=== PATIENT | male | born 1955 | race Caucasian/White ===

== ENCOUNTER 2021-12-07 14:35 | Observation (INO) | payer MEDICARE, OTHER ==
--- NOTE | 2021-12-07 14:50 | ERPHSYRPT ---
- History of Present Illness Time Seen by Provider: 12/07/21 14:49 Source: patient Exam Limitations: no limitations Physician History: The patient is a 66-year-old male who presents with a chief complaint of abdominal pain. Of note, the patient endorsed having right mid axillary pain started 1 to 2 days ago. He stated the pain became worse with trying to lie on his right side and is since migrated to his right lower quadrant lower quadrant and is completely resolved. Endorsed having some pain whenever he walks mainly in his groin but this is minimal. As long as he is lying still he is in no distress. He denies fever, chills, nausea, vomiting, diarrhea or constipation. He does not have a primary care provider that he follows with. He reportedly started taking some amoxicillin that he had purchased from [place] and shortly after taking the amoxicillin the pain reportedly resolved. He is currently pain-free at this time. Allergies/Adverse Reactions: No Known Drug Allergies Allergy (Unverified 12/07/21 14:43) Home Medications: No Reportable Medications [No Reported Medications] 12/07/21 [History] - Review of Systems Constitutional: No Symptoms Eyes: No Symptoms Ears, Nose, & Throat: No Symptoms Cardiac: Chest Pain Abdominal/Gastrointestinal: Abdominal Pain, No Nausea, No Vomiting Genitourinary Symptoms: No Dysuria, No Frequency, No Hematuria, No Flank Pain Musculoskeletal: No Back Pain, No Neck Pain, No Deformity Skin: No Symptoms Neurological: No Symptoms Psychological: No Symptoms Endocrine: No Symptoms Hematologic/Lymphatic: No Symptoms All Other Systems: Reviewed and Negative - Nursing Vital Signs Nursing Vital Signs: Initial Vital Signs Temperature 98.7 F 12/07/21 14:44 Pulse Rate 85 12/07/21 14:44 Respiratory Rate 18 12/07/21 14:44 Blood Pressure 178/99 12/07/21 14:44 O2 Sat by Pulse Oximetry 97 12/07/21 14:44 Pain Scale Pain Intensity 4 - Physical Exam General Appearance: no apparent distress, alert Eye Exam: PERRL/EOMI Ears, Nose, Throat Exam: moist mucous membranes Neck Exam: No JVD Respiratory Exam: normal breath sounds, lungs clear, airway intact, No chest tenderness, No respiratory distress Cardiovascular Exam: regular rate/rhythm, normal heart sounds, normal peripheral pulses, No murmur, No friction rub, No gallop, No capillary refill <2 sec Gastrointestinal/Abdomen Exam: soft, No tenderness, No distention, No mass, No guarding Male Genitalia Exam: normal genitalia Rectal Exam: deferred Back Exam: normal inspection Extremity Exam: normal inspection Neurologic Exam: alert, oriented x 3, cooperative Skin Exam: normal color, warm, dry, No rash, No petechiae, No jaundice SpO2 Interpretation: normal O2 Delivery: Room Air - Course Nursing assessment & vital signs reviewed: Yes EKG Interpreted by Me: RATE, Sinus Rhythm, Other (Sinus rhythm with a ventricular rate of 75 bpm, DE interval 152 ms, QRS duration 79 ms, QT/QTc 37 7/420 ms) - Radiology Exams Chest X-ray Interpretation: Reviewed by me, Teleradiologist Report (Mild left basilar platelike opacities likely discoid atelectasis although pneumonia is not excluded. Suggest follow-up imaging to document resolution. Blunting in the right posterior costophrenic angle likely placement of the known small right pl eural effusion.) - CT Exams Abdomen/Pelvis CT Interpretation: Tele-radiologist Report (Small right pleural effusion incompletely imaged. Mild basilar right lower lobe groundglass opacities likely atelectasis or possible pneumonia. Consider follow-up imaging to document resolution of clinically indicated.Hepatic steatosis.Diverticulosis.) Ordered Tests: Active Orders 24 hr Category Date Time Status Up With Assistance TOLERATED Activity 12/07/21 17:59 Active IV Insertion ROUTINE Care 12/07/21 17:58 Active IV Insertion STAT Care 12/07/21 14:[address] in Observation ROUTINE Care 12/07/21 17:58 Active ABDOMEN AND PELVIS W CONTRAST [CT] Stat Exams 12/07/21 15:20 Taken CHEST 2 VIEWS (PA AND LAT) Stat Exams 12/07/21 16:40 Taken CHEST WITH CONTRAST [CT] Routine Exams 12/08/21 09:00 Ordered ARTERIAL BLOOD GASES AM.LAB Lab 12/08/21 04:00 Ordered BLOOD CULTURE Stat Lab 12/07/21 Ordered BMP Stat Lab 12/07/21 15:00 Completed CBC W DIFF Stat Lab 12/07/21 15:00 Completed CMP AM.LAB Lab 12/08/21 04:00 Ordered D-DIMER QUANTITATIVE Stat Lab 12/07/21 16:43 Completed Lactic Acid Stat Lab 12/07/21 17:55 Ordered NT PRO BNP Stat Lab 12/07/21 17:21 Completed PROTIME WITH INR Stat Lab 12/07/21 17:55 Ordered PTT Stat Lab 12/07/21 17:55 Ordered TROPONIN Stat Lab 12/07/21 17:13 Completed UA W/RFX UR CULTURE Stat Lab 12/07/21 15:02 Completed EKG STAT RT 12/07/21 17:00 Active Pulse Oximetry ROUTINE RT 12/07/21 17:59 Active Medication Summary Generic Name Dose Route Start Last Admin Trade Name Freq PRN Reason Stop Dose Admin Acetaminophen 650 mg 12/07/21 17:58 Acetaminophen 650 Mg Supp.Rect DE 01/06/22 17:57 Q4H PRN PRN PAIN AND/OR FEVER Enoxaparin Sodium 94 mg 12/08/21 10:00 Enoxaparin Sodium 120 Mg/0.8 Ml Syringe SQ 01/07/22 09:59 DAILY [facility] Ceftriaxone Sodium/Dextrose 1 g in 50 mls @ 100 mls/hr 12/08/21 10:00 Rocephin 1 Gm-D5w 50 Ml Bag IV 12/11/21 09:59 Q24H10 [facility] Azithromycin 500 mg in 250 mls @ 250 mls/hr 12/08/21 10:00 Zithromax 500 Mg/ 250 Ml Nacl Premix IV 01/07/22 09:59 Q24H10 [facility] Lab/Rad Data: Laboratory Result Diagrams 12/07/21 15:00 12/07/21 15:00 Laboratory Results 12/07/21 12/07/21 12/07/21 Range/Units 17:21 17:13 16:43 WBC (4.0-10.5) K/mm3 RBC (4.1-5.6) M/mm3 Hgb (12.5-18.0) gm/dl Hct (42-50) % MCV (78-100) fl MCH (26-32) pg MCHC (32-36) g/dl RDW (11.5-14.0) % Plt Count (150-450) K/mm3 MPV (7.5-11.0) fl Gran % (36.0-66.0) % Eos # (Auto) (0-0.5) Absolute Lymphs (auto) (1.0-4.6) Absolute Monos (auto) (0.0-1.3) Lymphocytes % (24.0-44.0) % Monocytes % (0.0-12.0) % Eosinophils % (0.00-5.0) % Basophils % (0.0-0.4) % Absolute Granulocytes (1.4-6.9) Basophils # (0-0.4) D-Dimer 1818 H* (215-500) ng/mL Sodium (137-145) mmol/L Potassium (3.5-5.1) mmol/L Chloride (98-107) mmol/L Carbon Dioxide (22-30) mmol/L Anion Gap (5-15) MEQ/L BUN (9-20) mg/dL Creatinine (0.66-1.25) mg/dL Estimated GFR ML/MIN Glucose (74-106) mg/dL Calcium (8.4-10.2) mg/dL Troponin I < 0.012 (0.000-0.034) ng/mL NT-Pro-B Natriuret Pep 148 (0-900) pg/mL Urine Color (YELLOW) Urine Appearance (CLEAR) Urine pH (5-6) Ur Specific [place] (1.005-1.025) Urine Protein (Negative) Urine Ketones (NEGATIVE) Urine Blood (0-5) Gene/ul Urine Nitrite (NEGATIVE) Urine Bilirubin (NEGATIVE) Urine Urobilinogen (0-1) mg/dL Ur Leukocyte Esterase (NEGATIVE) Urine WBC (Auto) (0-5) /HPF Urine RBC (Auto) (0-2) /HPF U Epithel Cells (Auto) (FEW) /HPF Urine Bacteria (Auto) (NEGATIVE) /HPF Urine Mucus (Auto) (NEGATIVE) /HPF Urine Culture Reflexed (NO) Urine Glucose (NEGATIVE) mg/dL 12/07/21 12/07/21 12/07/21 Range/Units 15:02 15:00 15:00 WBC 11.1 H (4.0-10.5) K/mm3 RBC 4.81 (4.1-5.6) M/mm3 Hgb 15.1 (12.5-18.0) gm/dl Hct 44.8 (42-50) % MCV 93.1 (78-100) fl MCH 31.4 (26-32) pg MCHC 33.7 (32-36) g/dl RDW 13.5 (11.5-14.0) % Plt Count 373 (150-450) K/mm3 MPV 9.8 (7.5-11.0) fl Gran % 68.5 H (36.0-66.0) % Eos # (Auto) 0.17 (0-0.5) Absolute Lymphs (auto) 2.10 (1.0-4.6) Absolute Monos (auto) 1.15 (0.0-1.3) Lymphocytes % 19.0 L (24.0-44.0) % Monocytes % 10.4 (0.0-12.0) % Eosinophils % 1.5 (0.00-5.0) % Basophils % 0.6 (0.0-0.4) % Absolute Granulocytes 7.57 H (1.4-6.9) Basophils # 0.07 (0-0.4) D-Dimer (215-500) ng/mL Sodium 137 (137-145) mmol/L Potassium 4.7 (3.5-5.1) mmol/L Chloride 104 (98-107) mmol/L Carbon Dioxide 21 L (22-30) mmol/L Anion Gap 15.9 H (5-15) MEQ/L BUN 16 (9-20) mg/dL Creatinine 0.83 (0.66-1.25) mg/dL Estimated GFR > 60.0 ML/MIN Glucose 110 H (74-106) mg/dL Calcium 10.0 (8.4-10.2) mg/dL Troponin I (0.000-0.034) ng/mL NT-Pro-B Natriuret Pep (0-900) pg/mL Urine Color FABIANO (YELLOW) Urine Appearance SLIGHTLY CLOUDY (CLEAR) Urine pH 5.0 (5-6) Ur Specific [place] 1.025 (1.005-1.025) Urine Protein 30 (Negative) Urine Ketones TRACE (NEGATIVE) Urine Blood NEGATIVE (0-5) Gene/ul Urine Nitrite NEGATIVE (NEGATIVE) Urine Bilirubin NEGATIVE (NEGATIVE) Urine Urobilinogen 2 (0-1) mg/dL Ur Leukocyte Esterase NEGATIVE (NEGATIVE) Urine WBC (Auto) NONE (0-5) /HPF Urine RBC (Auto) 0-2 (0-2) /HPF U Epithel Cells (Auto) NONE (FEW) /HPF Urine Bacteria (Auto) NONE (NEGATIVE) /HPF Urine Mucus (Auto) SLIGHT (NEGATIVE) /HPF Urine Culture Reflexed NO (NO) Urine Glucose NEGATIVE (NEGATIVE) mg/dL - Progress Progress: unchanged Progress Note: 12/07/21 17:[address] scan of his abdomen pelvis shows evidence of a right pleural effusion and right atelectasis versus pneumonia. I do believe the patient's chest pain/abdominal pain is likely referred pain from this. He has no fever, chills he has a very mild leukocytosis and he has no cough or complaints of shortness of breath. I have a low suspicion for an infectious etiology at this time and PE is definitely on the differential given that his D-dimer is over 1800. His EKG showed no evidence of right heart strain and is not tachycardic or hypoxic. Unfortunately, he is already received a contrast load with his abdominal CT scan and in order for me to clinch the diagnosis he will need a CT scan with contrast. I do not think our radiology department will let me go forward with this and the patient will likely need to be admitted on empiric anticoagulation until his scan could be repeated tomorrow, specifically a CTA chest. 12/07/21 17:[address] Hanks and discussed the case with her. She agreed to admit for observation and the diagnosis at this time will be right pleural effusion with right lower lobe opacities and possible mild left basilar platelike opacities from unknown etiology. Etiology could be infectious such as community-acquired pneumonia and/or PE at this time. We decided to empirically cover him with ceftriaxone and azithromycin and will empirically cover him with Lovenox for anticoagulation until he can undergo CTA chest tomorrow. Discussed with : Dez Will see patient in: hospital (observation) Counseled pt/family regarding: lab results, diagnosis, rad results - Departure Departure Disposition: Observation Clinical Impression: Pleural effusion, right, Elevated d-dimer, Opacities of both lungs present on chest x-ray Condition: Good Critical Care Time: No Referrals: DOCTOR,NO FAMILY [Primary Care Provider] - Follow up/PCP as directed
[2021-12-07 15:05] LABS: Absolute Neutrophil Ct (ANC) 7.57 (1.4-6.9); Basophil (Absolute #) 0.07 (0-0.4); Eosinophil % 1.5 % (0.00-5.0); Eosinophil (Absolute #) 0.17 (0-0.5); Hematocrit 44.8 % (42-50); Hemoglobin 15.1 gm/dl (12.5-18.0); Mean Cell Volume 93.1 fl (78-100); Mean Corpuscular Hemoglobin 31.4 pg (26-32); Mean Corpuscular Hgb Concent. 33.7 g/dl (32-36); Mean Platelet Volume 9.8 fl (7.5-11.0); Monocyte (Absolute #) 1.15 (0.0-1.3); Monocytes % 10.4 % (0.0-12.0); Neutrophil % 68.5 % (36.0-66.0); Platelet Count 373 K/mm3 (150-450); Red Blood Count 4.81 M/mm3 (4.1-5.6); Red Cell Distribution Width 13.5 % (11.5-14.0); White Blood Count 11.1 K/mm3 (4.0-10.5)
[2021-12-07 15:11] LABS: Appearance SLIGHTLY CLOUDY (CLEAR); Bilirubin NEGATIVE (NEGATIVE); Blood NEGATIVE Ery/ul (0-5); Glucose NEGATIVE (NEGATIVE); Ketones TRACE (NEGATIVE); Leukocyte Esterase NEGATIVE (NEGATIVE); Mucus SLIGHT /HPF (NEGATIVE); Nitrite NEGATIVE (NEGATIVE); Protein,Urine Dip 30 (Negative); RBC 0-2 /HPF (0-2); Specific Gravity 1.025 (1.005-1.025); Urobilinogen 2 mg/dL (0-1)
[2021-12-07 15:17] LABS: ANION GAP 15.9 MEQ/L (5-15); BLOOD UREA NITROGEN 16 mg/dL (9-20); CHLORIDE 104 mmol/L (98-107); Carbon Dioxide 21 mmol/L (22-30); Creatinine 1 0.83 mg/dL (0.66-1.25); EST GLOMERULAR FILTRATION RATE > 60.0 ML/MIN; Glucose 110 mg/dL (74-106); Potassium 4.7 mmol/L (3.5-5.1); SODIUM 137 mmol/L (137-145)
[2021-12-07] MEDS ORDERED: FEVERALL 650 MG PR PRN (17:58)
[2021-12-07 18:27] LABS: PTT 32.8 SECONDS (25.1-36.5)
[2021-12-07 18:30] LABS: PROTIME 11.8 SECONDS (9.4-12.5)
[2021-12-07 18:53] LABS: INFLUENZA A NEGATIVE (NEGATIVE); INFLUENZA B NEGATIVE (NEGATIVE); RESPIRATORY SYNCTIAL VIRUS NEGATIVE (Negative); SARS-CoV-2 Xpert Express NEGATIVE (NEGATIVE)
--- NOTE | 2021-12-07 19:51 | XRAY ---
Indication: Right lower quadrant pain 4 days. Multiple contiguous axial images obtained through the abdomen and pelvis using 80 cc Isovue 370 contrast. Comparison: None Lung bases demonstrates bibasilar subsegmental atelectasis/scarring and tiny nonspecific right effusion. Heart not enlarged. Noncontrasted stomach and bowel loops appear nonobstructed. Normal appendix. Mild scattered descending and sigmoid diverticulosis without diverticulitis. No free fluid/air. Mild diffuse fatty liver. Remaining liver, gallbladder, pancreas, spleen, adrenal glands, kidneys, ureters, and bladder are unremarkable. Mild scattered aortoiliac calcifications. No AAA or pathologic retroperitoneal lymphadenopathy. Osseous structures intact with minimal degenerative changes throughout the thoracolumbar spine. Small fatty left inguinal hernia. Impression: 1. Tiny nonspecific right pleural effusion without cardiomegaly. 2. Colonic diverticulosis, fatty liver, minimal degenerative spondylosis, and small fatty left inguinal hernia. 3. Remaining CT abdomen/pelvis with contrast exam is negative. Comment: Preliminary interpretation made by [facility]. No critical discrepancy.
--- NOTE | 2021-12-07 19:53 | XRAY ---
Indication: Right lower quadrant pain 4 days. Comparison: None PA/lateral chest hyperinflated with mild left and minimal right base discoid atelectasis/scarring. Tiny CT proven right effusion. No focal infiltrate or consolidation. Heart and mediastinal structures within normal limits. Bony thorax intact. Impression: Bilateral discoid atelectasis/scarring and tiny nonspecific right effusion. Negative for acute pneumonic process or CHF. Comment: Preliminary interpretation made by [facility]. No critical discrepancy.
[2021-12-07] MEDS ORDERED: Zithromax 500 MG/ 250 ML NaCl Premix 500 MG/250 ML IVPB IV ONE (20:43)
[2021-12-07] MEDS ORDERED: ROCEPHIN 1 Gm-D5w 50 ml Bag** 1 G/50 ML IVPB IV ONE (20:43)
[2021-12-07] MEDS ORDERED: ENOXAPARIN SODIUM SQ ONE (20:44)
[2021-12-08 05:30] LABS: ALBUMIN 3.9 g/dL (3.5-5.0); ALKALINE PHOSPHATASE 75 U/L (38-126); ANION GAP 12.3 MEQ/L (5-15); BLOOD UREA NITROGEN 14 mg/dL (9-20); CHLORIDE 105 mmol/L (98-107); Calcium 8.7 mg/dL (8.4-10.2); Carbon Dioxide 21 mmol/L (22-30); Creatinine 1 0.81 mg/dL (0.66-1.25); EST GLOMERULAR FILTRATION RATE > 60.0 ML/MIN; Glucose 102 mg/dL (74-106); Potassium 3.7 mmol/L (3.5-5.1); SGOT/AST 38 U/L (17-59); SGPT/ALT 38 U/L (0-50); SODIUM 134 mmol/L (137-145); Total Protein 7.3 g/dL (6.3-8.2)
[2021-12-08 07:56] VITALS: PULSE 75
[2021-12-08] MEDS ORDERED: Zithromax 500 MG/ 250 ML NaCl Premix 500 MG/250 ML IVPB IV SCH ×2 (10:00→22:00)
[2021-12-08] MEDS ORDERED: ROCEPHIN 1 Gm-D5w 50 ml Bag** 1 G/50 ML IVPB IV SCH ×2 (10:00→22:00)
[2021-12-08] MEDS ORDERED: ENOXAPARIN SODIUM SQ SCH ×2 (10:00→22:00)
--- NOTE | 2021-12-08 10:30 | XRAY ---
Indication: Multiple contiguous axial images obtained through the chest using Isovue 370 contrast and PE protocol. Comparison: None There is adequate opacification of the pulmonary arteries to include the lobar and segmental branches. Tiny nonoccluding pulmonary emboli seen in the inferior segment branch of the lingula and anterior segment branch of the left lower lobe. Heart not enlarged. Aorta is mildly arteriosclerotic without aneurysm/dissection. No pathologic mediastinal/hilar lymphadenopathy. Small hiatal hernia. Lungs demonstrate diffuse scattered left lung and right mid to lower lung subsegmental atelectasis/scarring. Right posterior gutter demonstrates patchy ground glass air space disease with minimal compressive atelectasis and tiny effusion. Bony thorax intact. CT abdomen/pelvis reported separately. Impression: 1. Tiny nonoccluding pulmonary emboli segmental branch of the lingula and left lower lobe as detailed. 2. Right posterior gutter air space disease with tiny effusion. 3. Scattered bilateral subsegmental atelectasis/scarring and small hiatal hernia.
[2021-12-08 12:21] VITALS: BP 145/80; O2SAT 94
[2021-12-08] MEDS ORDERED: Tums EX 750 MG PO PRN (12:29)
[2021-12-08] MEDS ORDERED: PHARMACY DOSING REQUEST MC ONE (12:30)
[2021-12-08] MEDS ORDERED: THERAGRAN MULTIVITAMIN PO SCH (13:00)
[2021-12-08] MEDS ORDERED: ECOTRIN 81 MG PO SCH (13:00)
[2021-12-08] MEDS ORDERED: XARELTO 10 MG TABLET PO ONE (13:05)
--- NOTE | 2021-12-08 13:30 | PCM.SSS ---
History of Present Illness - Chief Complaint Chief Complaint: abdominal pain for 1-2 days History of Present Illness: is a 66 year old male.who presents with a chief complaint of abdo osvaldo pain. Of note, the patient endorsed having right mid axillary pain started 1 to 2 days ago. He stated the pain became worse with trying to lie on his right side and is since migrated to his right lower quadrant lower quadrant and is completely resolved. Endorsed having some pain whenever he walks mainly in his groin but this is minimal. As long as he is lying still he is in no distress. He denies fever, chills, nausea, vomiting, diarrhea or constipation. He does not have a primary care provider that he follows with. He reportedly started taking some amoxicillin that he had purchased from [place] and shortly after taking the amoxicillin the pain reportedly resolved. He is currently pain-free at this time. - Review of Systems Constitutional: No Fever, No Chills Eyes: No Symptoms Ears, Nose, & Throat: No Symptoms Respiratory: No Cough, No Short Of Breath, No Wheezing Cardiac: Chest Pain, No Edema, No Syncope Abdominal/Gastrointestinal: Abdominal Pain, No Nausea, No Vomiting, No Diarrhea Genitourinary Symptoms: No Dysuria Musculoskeletal: No Back Pain, No Neck Pain Skin: No Rash Neurological: No Dizziness, No Focal Weakness, No Sensory Changes Psychological: No Symptoms Endocrine: No Symptoms Hematologic/Lymphatic: No Symptoms Immunological/Allergic: No Symptoms Medications & Allergies Home Medications: Home Medication List Aspirin [Lo-Dose Aspirin EC] 81 mg PO DAILY 12/08/21 [History Confirmed 12/08/21] C/Sourcherry/Celery/Grape Seed [Tart [place] Capsule] 1 cap PO DAILY 12/08/21 [History Confirmed 12/08/21] Calcium Carbonate [Tums] 1 tab PO TID PRN PRN 12/08/21 [History Confirmed 12/08/21] Multivit-Minerals/FA/Lycopene [One Daily Men's Health Tablet] 1 tab PO DAILY 12/08/21 [History Confirmed 12/08/21] Beacon-3/Dha/Epa/Fish Oil [Megared Adv 6X Abs 800 mg Sfgl] 1 cap PO DAILY 12/08/21 [History Confirmed 12/08/21] Rivaroxaban [Xarelto] 15 mg PO BID 21 Days #42 tablet 12/08/21 [Rx] Allergies/Adverse Reactions: Allergies Allergy/AdvReac Type Severity Reaction Status Date / Time No Known Drug Allergies Allergy Unverified 12/07/21 14:43 - Past Medical History Past Medical History: No Neurological History: No Pertinent History ENT History: No Pertinent History Cardiac History: No Pertinent History Respiratory History: No Pertinent History Endocrine Medical History: No Pertinent History Musculoskelatal History: No Pertinent History GI Medical History: No Pertinent History History: No Pertinent History Pyscho-Social History: No Pertinent History Male Reproductive Disorders: No Pertinent History - Past Surgical History Past Surgical History: No Neuro Surgical History: No Pertinent History Cardiac History: No Pertinent History Respiratory Surgery: No Pertinent History GI Surgical History: No Pertinent History Genitourinary Surgical Hx: No Pertinent History Musculskeletal Surgical Hx: No Pertinent History Male Surgical History: No Pertinent History - Social History Smoking Status: Former smoker Exposure to second hand smoke: Yes Alcohol: Occasionally Drug Use: none - Physical Exam Vital Signs: Vital Signs - 24 hr Temp Pulse Resp BP Pulse Ox 12/08/21 12:00 98.7 F 75 21 145/80 94 L 12/08/21 07:55 97.7 F 75 19 142/83 93 L 12/08/21 04:30 99.4 F 76 18 139/68 92 L 12/07/21 23:33 99.1 F 78 20 157/74 95 12/07/21 20:17 98.3 F 78 16 158/98 96 12/07/21 19:09 75 17 136/101 94 L 12/07/21 18:05 80 193/89 95 12/07/21 17:28 81 156/98 95 12/07/21 16:17 76 146/79 96 12/07/21 15:51 131/89 12/07/21 14:44 98.7 F 85 18 178/99 97 General Appearance: no apparent distress, alert Neurologic Exam: alert, oriented x 3, cooperative, normal mood/affect, nml cerebellar function, nml station & gait, sensation nml, No motor deficits Eye Exam: PERRL/EOMI, eyes nml inspection Ears, Nose, Throat Exam: normal ENT inspection, TMs normal, pharynx normal, moist mucous membranes Neck Exam: normal inspection, non-tender, supple, full range of motion Respiratory Exam: diminished breath sounds, No respiratory distress Cardiovascular Exam: regular rate/rhythm, normal heart sounds, normal peripheral pulses Gastrointestinal/Abdomen Exam: soft, normal bowel sounds, No tenderness, No mass Back Exam: normal inspection, normal range of motion, No CVA tenderness, No vertebral tenderness Extremity Exam: normal inspection, normal range of motion, pelvis stable Skin Exam: normal color, warm, dry, No rash Lymphatic Exam: No adenopathy Results - Labs Lab/Micro Results: Lab Results-Last 24 Hours 12/07/21 12/07/21 12/07/21 Range/Units 15:00 15:00 15:02 WBC 11.1 H (4.0-10.5) K/mm3 RBC 4.81 (4.1-5.6) M/mm3 Hgb 15.1 (12.5-18.0) gm/dl Hct 44.8 (42-50) % MCV 93.1 (78-100) fl MCH 31.4 (26-32) pg MCHC 33.7 (32-36) g/dl RDW 13.5 (11.5-14.0) % Plt Count 373 (150-450) K/mm3 MPV 9.8 (7.5-11.0) fl Gran % 68.5 H (36.0-66.0) % Eos # (Auto) 0.17 (0-0.5) Absolute Lymphs (auto) 2.10 (1.0-4.6) Absolute Monos (auto) 1.15 (0.0-1.3) Lymphocytes % 19.0 L (24.0-44.0) % Monocytes % 10.4 (0.0-12.0) % Eosinophils % 1.5 (0.00-5.0) % Basophils % 0.6 (0.0-0.4) % Absolute Granulocytes 7.57 H (1.4-6.9) Basophils # 0.07 (0-0.4) PT (9.4-12.5) SECONDS INR (0.8-3.0) APTT (25.1-36.5) SECONDS D-Dimer (215-500) ng/mL Sodium 137 (137-145) mmol/L Potassium 4.7 (3.5-5.1) mmol/L Chloride 104 (98-107) mmol/L Carbon Dioxide 21 L (22-30) mmol/L Anion Gap 15.9 H (5-15) MEQ/L BUN 16 (9-20) mg/dL Creatinine 0.83 (0.66-1.25) mg/dL Estimated GFR > 60.0 ML/MIN Glucose 110 H (74-106) mg/dL Lactic Acid (0.4-2.0) Calcium 10.0 (8.4-10.2) mg/dL Total Bilirubin (0.2-1.3) mg/dL AST (17-59) U/L ALT (0-50) U/L Alkaline Phosphatase (38-126) U/L Troponin I (0.000-0.034) ng/mL NT-Pro-B Natriuret Pep (0-900) pg/mL Serum Total Protein (6.3-8.2) g/dL Albumin (3.5-5.0) g/dL Urine Color FABIANO (YELLOW) Urine Appearance SLIGHTLY CLOUDY (CLEAR) Urine pH 5.0 (5-6) Ur Specific [place] 1.025 (1.005-1.025) Urine Protein 30 (Negative) Urine Ketones TRACE (NEGATIVE) Urine Blood NEGATIVE (0-5) Gene/ul Urine Nitrite NEGATIVE (NEGATIVE) Urine Bilirubin NEGATIVE (NEGATIVE) Urine Urobilinogen 2 (0-1) mg/dL Ur Leukocyte Esterase NEGATIVE (NEGATIVE) Urine WBC (Auto) NONE (0-5) /HPF Urine RBC (Auto) 0-2 (0-2) /HPF U Epithel Cells (Auto) NONE (FEW) /HPF Urine Bacteria (Auto) NONE (NEGATIVE) /HPF Urine Mucus (Auto) SLIGHT (NEGATIVE) /HPF Urine Culture Reflexed NO (NO) Urine Glucose NEGATIVE (NEGATIVE) mg/dL Influenza Type A Ag (NEGATIVE) Influenza Type B Ag (NEGATIVE) RSV (PCR) (Negative) SARS-CoV-2 (PCR) (NEGATIVE) 12/07/21 12/07/21 12/07/21 Range/Units 16:43 17:13 17:21 WBC (4.0-10.5) K/mm3 RBC (4.1-5.6) M/mm3 Hgb (12.5-18.0) gm/dl Hct (42-50) % MCV (78-100) fl MCH (26-32) pg MCHC (32-36) g/dl RDW (11.5-14.0) % Plt Count (150-450) K/mm3 MPV (7.5-11.0) fl Gran % (36.0-66.0) % Eos # (Auto) (0-0.5) Absolute Lymphs (auto) (1.0-4.6) Absolute Monos (auto) (0.0-1.3) Lymphocytes % (24.0-44.0) % Monocytes % (0.0-12.0) % Eosinophils % (0.00-5.0) % Basophils % (0.0-0.4) % Absolute Granulocytes (1.4-6.9) Basophils # (0-0.4) PT (9.4-12.5) SECONDS INR (0.8-3.0) APTT (25.1-36.5) SECONDS D-Dimer 1818 H* (215-500) ng/mL Sodium (137-145) mmol/L Potassium (3.5-5.1) mmol/L Chloride (98-107) mmol/L Carbon Dioxide (22-30) mmol/L Anion Gap (5-15) MEQ/L BUN (9-20) mg/dL Creatinine (0.66-1.25) mg/dL Estimated GFR ML/MIN Glucose (74-106) mg/dL Lactic Acid (0.4-2.0) Calcium (8.4-10.2) mg/dL Total Bilirubin (0.2-1.3) mg/dL AST (17-59) U/L ALT (0-50) U/L Alkaline Phosphatase (38-126) U/L Troponin I < 0.012 (0.000-0.034) ng/mL NT-Pro-B Natriuret Pep 148 (0-900) pg/mL Serum Total Protein (6.3-8.2) g/dL Albumin (3.5-5.0) g/dL Urine Color (YELLOW) Urine Appearance (CLEAR) Urine pH (5-6) Ur Specific [place] (1.005-1.025) Urine Protein (Negative) Urine Ketones (NEGATIVE) Urine Blood (0-5) Gene/ul Urine Nitrite (NEGATIVE) Urine Bilirubin (NEGATIVE) Urine Urobilinogen (0-1) mg/dL Ur Leukocyte Esterase (NEGATIVE) Urine WBC (Auto) (0-5) /HPF Urine RBC (Auto) (0-2) /HPF U Epithel Cells (Auto) (FEW) /HPF Urine Bacteria (Auto) (NEGATIVE) /HPF Urine Mucus (Auto) (NEGATIVE) /HPF Urine Culture Reflexed (NO) Urine Glucose (NEGATIVE) mg/dL Influenza Type A Ag (NEGATIVE) Influenza Type B Ag (NEGATIVE) RSV (PCR) (Negative) SARS-CoV-2 (PCR) (NEGATIVE) 12/07/21 12/07/21 12/07/21 Range/Units 17:30 18:10 18:55 WBC (4.0-10.5) K/mm3 RBC (4.1-5.6) M/mm3 Hgb (12.5-18.0) gm/dl Hct (42-50) % MCV (78-100) fl MCH (26-32) pg MCHC (32-36) g/dl RDW (11.5-14.0) % Plt Count (150-450) K/mm3 MPV (7.5-11.0) fl Gran % (36.0-66.0) % Eos # (Auto) (0-0.5) Absolute Lymphs (auto) (1.0-4.6) Absolute Monos (auto) (0.0-1.3) Lymphocytes % (24.0-44.0) % Monocytes % (0.0-12.0) % Eosinophils % (0.00-5.0) % Basophils % (0.0-0.4) % Absolute Granulocytes (1.4-6.9) Basophils # (0-0.4) PT 11.8 (9.4-12.5) SECONDS INR 1.00 (0.8-3.0) APTT 32.8 (25.1-36.5) SECONDS D-Dimer (215-500) ng/mL Sodium (137-145) mmol/L Potassium (3.5-5.1) mmol/L Chloride (98-107) mmol/L Carbon Dioxide (22-30) mmol/L Anion Gap (5-15) MEQ/L BUN (9-20) mg/dL Creatinine (0.66-1.25) mg/dL Estimated GFR ML/MIN Glucose (74-106) mg/dL Lactic Acid 0.9 (0.4-2.0) Calcium (8.4-10.2) mg/dL Total Bilirubin (0.2-1.3) mg/dL AST (17-59) U/L ALT (0-50) U/L Alkaline Phosphatase (38-126) U/L Troponin I (0.000-0.034) ng/mL NT-Pro-B Natriuret Pep (0-900) pg/mL Serum Total Protein (6.3-8.2) g/dL Albumin (3.5-5.0) g/dL Urine Color (YELLOW) Urine Appearance (CLEAR) Urine pH (5-6) Ur Specific [place] (1.005-1.025) Urine Protein (Negative) Urine Ketones (NEGATIVE) Urine Blood (0-5) Gene/ul Urine Nitrite (NEGATIVE) Urine Bilirubin (NEGATIVE) Urine Urobilinogen (0-1) mg/dL Ur Leukocyte Esterase (NEGATIVE) Urine WBC (Auto) (0-5) /HPF Urine RBC (Auto) (0-2) /HPF U Epithel Cells (Auto) (FEW) /HPF Urine Bacteria (Auto) (NEGATIVE) /HPF Urine Mucus (Auto) (NEGATIVE) /HPF Urine Culture Reflexed (NO) Urine Glucose (NEGATIVE) mg/dL Influenza Type A Ag NEGATIVE (NEGATIVE) Influenza Type B Ag NEGATIVE (NEGATIVE) RSV (PCR) NEGATIVE (Negative) SARS-CoV-2 (PCR) NEGATIVE (NEGATIVE) 12/08/21 Range/Units 05:04 WBC (4.0-10.5) K/mm3 RBC (4.1-5.6) M/mm3 Hgb (12.5-18.0) gm/dl Hct (42-50) % MCV (78-100) fl MCH (26-32) pg MCHC (32-36) g/dl RDW (11.5-14.0) % Plt Count (150-450) K/mm3 MPV (7.5-11.0) fl Gran % (36.0-66.0) % Eos # (Auto) (0-0.5) Absolute Lymphs (auto) (1.0-4.6) Absolute Monos (auto) (0.0-1.3) Lymphocytes % (24.0-44.0) % Monocytes % (0.0-12.0) % Eosinophils % (0.00-5.0) % Basophils % (0.0-0.4) % Absolute Granulocytes (1.4-6.9) Basophils # (0-0.4) PT (9.4-12.5) SECONDS INR (0.8-3.0) APTT (25.1-36.5) SECONDS D-Dimer (215-500) ng/mL Sodium 134 L (137-145) mmol/L Potassium 3.7 D (3.5-5.1) mmol/L Chloride 105 (98-107) mmol/L Carbon Dioxide 21 L (22-30) mmol/L Anion Gap 12.3 (5-15) MEQ/L BUN 14 (9-20) mg/dL Creatinine 0.81 (0.66-1.25) mg/dL Estimated GFR > 60.0 ML/MIN Glucose 102 (74-106) mg/dL Lactic Acid (0.4-2.0) Calcium 8.7 (8.4-10.2) mg/dL Total Bilirubin 0.60 (0.2-1.3) mg/dL AST 38 (17-59) U/L ALT 38 (0-50) U/L Alkaline Phosphatase 75 (38-126) U/L Troponin I (0.000-0.034) ng/mL NT-Pro-B Natriuret Pep (0-900) pg/mL Serum Total Protein 7.3 (6.3-8.2) g/dL Albumin 3.9 (3.5-5.0) g/dL Urine Color (YELLOW) Urine Appearance (CLEAR) Urine pH (5-6) Ur Specific [place] (1.005-1.025) Urine Protein (Negative) Urine Ketones (NEGATIVE) Urine Blood (0-5) Gene/ul Urine Nitrite (NEGATIVE) Urine Bilirubin (NEGATIVE) Urine Urobilinogen (0-1) mg/dL Ur Leukocyte Esterase (NEGATIVE) Urine WBC (Auto) (0-5) /HPF Urine RBC (Auto) (0-2) /HPF U Epithel Cells (Auto) (FEW) /HPF Urine Bacteria (Auto) (NEGATIVE) /HPF Urine Mucus (Auto) (NEGATIVE) /HPF Urine Culture Reflexed (NO) Urine Glucose (NEGATIVE) mg/dL Influenza Type A Ag (NEGATIVE) Influenza Type B Ag (NEGATIVE) RSV (PCR) (Negative) SARS-CoV-2 (PCR) (NEGATIVE) - Radiology Impressions Radiology Exams & Impressions: Radiology Procedures Category Date Time Status ABDOMEN AND PELVIS W CONTRAST [CT] Stat Exams 12/07/21 15:20 Completed CHEST 2 VIEWS (PA AND LAT) Stat Exams 12/07/21 16:40 Completed CHEST WITH CONTRAST [CT] Routine Exams 12/08/21 09:[address]/CHEST WITH CONTRAST Indication: Multiple contiguous axial images obtained through the chest using Isovue 370 contrast and PE protocol. Comparison: None There is adequate opacification of the pulmonary arteries to include the lobar and segmental branches. Tiny nonoccluding pulmonary emboli seen in the inferior segment branch of the lingula and anterior segment branch of the left lower lobe. Heart not enlarged. Aorta is mildly arteriosclerotic without aneurysm/dissection. No pathologic mediastinal/hilar lymphadenopathy. Small hiatal hernia. Lungs demonstrate diffuse scattered left lung and right mid to lower lung subsegmental atelectasis/scarring. Right posterior gutter demonstrates patchy ground glass air space disease with minimal compressive atelectasis and tiny effusion. Bony thorax intact. CT abdomen/pelvis reported separately. Impression: 1. Tiny nonoccluding pulmonary emboli segmental branch of the lingula and left lower lobe as detailed. 2. Right posterior gutter air space disease with tiny effusion. 3. Scattered bilateral subsegmental atelectasis/scarring and small hiatal hernia. CT/ABDOMEN AND PELVIS W CONTRAST Indication: Right lower quadrant pain 4 days. Multiple contiguous axial images obtained through the abdomen and pelvis using 80 cc Isovue 370 contrast. Comparison: None Lung bases demonstrates bibasilar subsegmental atelectasis/scarring and tiny nonspecific right effusion. Heart not enlarged. Noncontrasted stomach and bowel loops appear nonobstructed. Normal appendix. Mild scattered descending and sigmoid diverticulosis without diverticulitis. No free fluid/air. Mild diffuse fatty liver. Remaining liver, gallbladder, pancreas, spleen, adrenal glands, kidneys, ureters, and bladder are unremarkable. Mild scattered aortoiliac calcifications. No AAA or pathologic retroperitoneal lymphadenopathy. Osseous structures intact with minimal degenerative changes throughout the thoracolumbar spine. Small fatty left inguinal hernia. Impression: 1. Tiny nonspecific right pleural effusion without cardiomegaly. 2. Colonic diverticulosis, fatty liver, minimal degenerative spondylosis, and small fatty left inguinal hernia. 3. Remaining CT abdomen/pelvis with contrast exam is negative. - Other Procedures and Tests Respiratory Therapy 12/07/21 17:00 EKG STAT Assessment/Plan (1) Pulmonary embolism Current Visit: Yes Status: Acute Qualifiers: Pulmonary embolism type: single subsegmental (without acute cor pulmonale) Qualified Code(s): I26.93 - Single subsegmental pulmonary embolism without acute cor pulmonale Assessment & Plan: Chief Complaint Diagnosis Right pleural effusion Allergies Allergy/AdvReac Type Severity Reaction Status Date / Time No Known Drug Allergies Allergy Unverified 12/07/21 14:43 Vital Signs (Last 24 hours) Temp Pulse Resp BP Pulse Ox 12/08/21 12:00 98.7 F 75 21 145/80 94 L 12/08/21 07:55 97.7 F 75 19 142/83 93 L 12/08/21 04:30 99.4 F 76 18 139/68 92 L 12/07/21 23:33 99.1 F 78 20 157/74 95 12/07/21 20:17 98.3 F 78 16 158/98 96 12/07/21 19:09 75 17 136/101 94 L 12/07/21 18:05 80 193/89 95 12/07/21 17:28 81 156/98 95 12/07/21 16:17 76 146/79 96 12/07/21 15:51 131/89 12/07/21 14:44 98.7 F 85 18 178/99 97 Home Medications Medication Instructions Recorded Confirmed Last Taken Type Aspirin [Lo-Dose Aspirin EC] 81 mg PO DAILY 12/08/21 12/08/21 12/07/21 History C/Sourcherry/Celery/Grape Seed 1 cap PO DAILY 12/08/21 12/08/21 12/07/21 History [Tart [place] Capsule] Calcium Carbonate [Tums] 1 tab PO TID PRN PRN 12/08/21 12/08/21 Unknown History Multivit-Minerals/FA/Lycopene [One 1 tab PO DAILY 12/08/21 12/08/21 12/07/21 History Daily Men's Health Tablet] Beacon-3/Dha/Epa/Fish Oil [Megared 1 cap PO DAILY 12/08/21 12/08/21 12/07/21 History Adv 6X Abs 800 mg Sfgl] Current Medications Generic Name Dose Route Start Last Admin Trade Name Umair PRN Reason Stop Dose Admin Acetaminophen 650 mg 12/07/21 17:58 Acetaminophen 650 Mg Supp.Rect AR 01/06/22 17:57 Q4H PRN PRN PAIN AND/OR FEVER Aspirin 81 mg 12/08/21 13:00 Aspirin 81 Mg Tablet.Ec PO 01/07/22 12:59 DAILY PRIYANKA Calcium Carbonate/Glycine 750 mg 12/08/21 12:29 Calcium Carbonate 750 Mg 750 Mg Tab.Chew PO 01/07/22 12:28 TID PRN PRN GAS Enoxaparin Sodium 100 mg 12/08/21 22:00 Enoxaparin Sodium 100 Mg/Ml Syringe SQ 01/07/22 21:59 Q24H22 PRIYANKA Ceftriaxone Sodium/Dextrose 1 g in 50 mls @ 100 mls/hr 12/08/21 22:00 Rocephin 1 Gm-D5w 50 Ml Bag IV 12/11/21 21:59 Q24H22 PRIYANKA Azithromycin 500 mg in 250 mls @ 250 mls/hr 12/08/21 22:00 Zithromax 500 Mg/ 250 Ml Nacl Premix IV 01/07/22 21:59 Q24H22 PRIYANKA Multivitamins Therapeutic 1 tab 12/08/21 13:00 Multivitamins,Therapeutic 1 Tab Tab PO 01/07/22 12:59 DAILY PRIYANKA Discontinued Medications Generic Name Dose Route Start Last Admin Trade Name Umair PRN Reason Stop Dose Admin Enoxaparin Sodium 94 mg 12/08/21 10:00 12/07/21 20:59 Enoxaparin Sodium 120 Mg/0.8 Ml Syringe SQ 01/07/22 09:59 94 mg DAILY PRIYANKA Administration Enoxaparin Sodium Confirm 12/07/21 20:44 Enoxaparin Sodium 120 Mg/0.8 Ml Syringe Administered 12/07/21 20:45 Dose 120 mg SQ .STK-MED ONE Ceftriaxone Sodium/Dextrose 1 g in 50 mls @ 100 mls/hr 12/08/21 10:00 12/07/21 20:58 Rocephin 1 Gm-D5w 50 Ml Bag IV 12/11/21 09:59 100 mls/hr Q24H10 PRIYANKA Administration Azithromycin 500 mg in 250 mls @ 250 mls/hr 12/08/21 10:00 12/07/21 21:32 Zithromax 500 Mg/ 250 Ml Nacl Premix IV 01/07/22 09:59 250 mls/hr Q24H10 PRIYANKA Administration Azithromycin Confirm 12/07/21 20:43 Zithromax 500 Mg/ 250 Ml Nacl Premix Administered 12/07/21 20:44 Dose 500 mg in 250 mls @ ud IV .STK-MED ONE Ceftriaxone Sodium/Dextrose Confirm 12/07/21 20:43 Rocephin 1 Gm-D5w 50 Ml Bag Administered 12/07/21 20:44 Dose 1 g in 50 mls @ ud IV .STK-MED ONE Non-Formulary Medication 1 each 12/08/21 12:30 Pharmacy Dosing Request 12/08/21 12:31 STAT ONE Rivaroxaban 15 mg 12/08/21 13:05 12/08/21 13:18 Rivaroxaban 10 Mg Tablet PO 12/08/21 13:06 15 mg STAT ONE Administration Intake & Output (Last 24 hours) 12/06/21 12/07/21 12/08/21 12/09/21 10:59 11:59 11:59 11:59 Intake Total 1320 Balance 1320 Weight 94.1 kg Microbiology Results (Last 24 hours) 12/07/21 18:50 Blood Blood Culture Gram Stain - Pending 12/07/21 18:50 Blood Blood Culture - Pending 12/07/21 17:30 Blood Blood Culture Gram Stain - Pending 12/07/21 17:30 Blood Blood Culture - Pending Laboratory Results (Last 24 hours) 12/08/21 12/07/21 12/07/21 05:04 18:55 18:10 WBC RBC Hgb Hct MCV MCH MCHC RDW Plt Count MPV Gran % Eos # (Auto) Absolute Lymphs (auto) Absolute Monos (auto) Lymphocytes % Monocytes % Eosinophils % Basophils % Absolute Granulocytes Basophils # PT INR APTT D-Dimer Sodium 134 L Potassium 3.7 D Chloride 105 Carbon Dioxide 21 L Anion Gap 12.3 BUN 14 Creatinine 0.81 Estimated GFR > 60.0 Glucose 102 Lactic Acid 0.9 Calcium 8.7 Total Bilirubin 0.60 AST 38 ALT 38 Alkaline Phosphatase 75 Troponin I NT-Pro-B Natriuret Pep Serum Total Protein 7.3 Albumin 3.9 Urine Color Urine Appearance Urine pH Ur Specific [place] Urine Protein Urine Ketones Urine Blood Urine Nitrite Urine Bilirubin Urine Urobilinogen Ur Leukocyte Esterase Urine WBC (Auto) Urine RBC (Auto) U Epithel Cells (Auto) Urine Bacteria (Auto) Urine Mucus (Auto) Urine Culture Reflexed Urine Glucose Influenza Type A Ag NEGATIVE Influenza Type B Ag NEGATIVE RSV (PCR) NEGATIVE SARS-CoV-2 (PCR) NEGATIVE 12/07/21 12/07/21 12/07/21 17:30 17:21 17:13 WBC RBC Hgb Hct MCV MCH MCHC RDW Plt Count MPV Gran % Eos # (Auto) Absolute Lymphs (auto) Absolute Monos (auto) Lymphocytes % Monocytes % Eosinophils % Basophils % Absolute Granulocytes Basophils # PT 11.8 INR 1.00 APTT 32.8 D-Dimer Sodium Potassium Chloride Carbon Dioxide Anion Gap BUN Creatinine Estimated GFR Glucose Lactic Acid Calcium Total Bilirubin AST ALT Alkaline Phosphatase Troponin I < 0.012 NT-Pro-B Natriuret Pep 148 Serum Total Protein Albumin Urine Color Urine Appearance Urine pH Ur Specific [place] Urine Protein Urine Ketones Urine Blood Urine Nitrite Urine Bilirubin Urine Urobilinogen Ur Leukocyte Esterase Urine WBC (Auto) Urine RBC (Auto) U Epithel Cells (Auto) Urine Bacteria (Auto) Urine Mucus (Auto) Urine Culture Reflexed Urine Glucose Influenza Type A Ag Influenza Type B Ag RSV (PCR) SARS-CoV-2 (PCR) 12/07/21 12/07/21 12/07/21 16:43 15:02 15:00 WBC RBC Hgb Hct MCV MCH MCHC RDW Plt Count MPV Gran % Eos # (Auto) Absolute Lymphs (auto) Absolute Monos (auto) Lymphocytes % Monocytes % Eosinophils % Basophils % Absolute Granulocytes Basophils # PT INR APTT D-Dimer 1818 H* Sodium 137 Potassium 4.7 Chloride 104 Carbon Dioxide 21 L Anion Gap 15.9 H BUN 16 Creatinine 0.83 Estimated GFR > 60.0 Glucose 110 H Lactic Acid Calcium 10.0 Total Bilirubin AST ALT Alkaline Phosphatase Troponin I NT-Pro-B Natriuret Pep Serum Total Protein Albumin Urine Color FABIANO Urine Appearance SLIGHTLY CLOUDY Urine pH 5.0 Ur Specific [place] 1.025 Urine Protein 30 Urine Ketones TRACE Urine Blood NEGATIVE Urine Nitrite NEGATIVE Urine Bilirubin NEGATIVE Urine Urobilinogen 2 Ur Leukocyte Esterase NEGATIVE Urine WBC (Auto) NONE Urine RBC (Auto) 0-2 U Epithel Cells (Auto) NONE Urine Bacteria (Auto) NONE Urine Mucus (Auto) SLIGHT Urine Culture Reflexed NO Urine Glucose NEGATIVE Influenza Type A Ag Influenza Type B Ag RSV (PCR) SARS-CoV-2 (PCR) 12/07/21 15:00 WBC 11.1 H RBC 4.81 Hgb 15.1 Hct 44.8 MCV 93.1 MCH 31.4 MCHC 33.7 RDW 13.5 Plt Count 373 MPV 9.8 Gran % 68.5 H Eos # (Auto) 0.17 Absolute Lymphs (auto) 2.10 Absolute Monos (auto) 1.15 Lymphocytes % 19.0 L Monocytes % 10.4 Eosinophils % 1.5 Basophils % 0.6 Absolute Granulocytes 7.57 H Basophils # 0.07 PT INR APTT D-Dimer Sodium Potassium Chloride Carbon Dioxide Anion Gap BUN Creatinine Estimated GFR Glucose Lactic Acid Calcium Total Bilirubin AST ALT Alkaline Phosphatase Troponin I NT-Pro-B Natriuret Pep Serum Total Protein Albumin Urine Color Urine Appearance Urine pH Ur Specific [place] Urine Protein Urine Ketones Urine Blood Urine Nitrite Urine Bilirubin Urine Urobilinogen Ur Leukocyte Esterase Urine WBC (Auto) Urine RBC (Auto) U Epithel Cells (Auto) Urine Bacteria (Auto) Urine Mucus (Auto) Urine Culture Reflexed Urine Glucose Influenza Type A Ag Influenza Type B Ag RSV (PCR) SARS-CoV-2 (PCR) Orders (Last 24 hours) Category Date Time Status Up With Assistance TOLERATED Activity 12/07/21 17:59 Active IV Insertion ROUTINE Care 12/07/21 17:58 Active IV Insertion STAT Care 12/07/21 14:[address] in Observation ROUTINE Care 12/07/21 17:58 Active House Regular Diet Diet 12/08/21 Breakfast Active Discharge Routine Discharge 12/08/21 Ordered Discharge/Telephone Order Routine Discharge 12/08/21 Active ABDOMEN AND PELVIS W CONTRAST [CT] Stat Exams 12/07/21 15:20 Completed CHEST 2 VIEWS (PA AND LAT) Stat Exams 12/07/21 16:40 Completed CHEST WITH CONTRAST [CT] Routine Exams 12/08/21 09:00 Completed BLOOD CULTURE Stat Lab 12/07/21 18:50 Received BMP Stat Lab 12/07/21 15:00 Completed CBC W DIFF Stat Lab 12/07/21 15:00 Completed CMP AM.LAB Lab 12/08/21 05:04 Completed D-DIMER QUANTITATIVE Stat Lab 12/07/21 16:43 Completed Lactic Acid Stat Lab 12/07/21 18:55 Completed NT PRO BNP Stat Lab 12/07/21 17:21 Completed PROTIME WITH INR Stat Lab 12/07/21 17:30 Completed PTT Stat Lab 12/07/21 17:30 Completed TROPONIN Stat Lab 12/07/21 17:13 Completed UA W/RFX UR CULTURE Stat Lab 12/07/21 15:02 Completed Acetaminophen 650 mg [Feverall 650 mg] Med 12/07/21 17:58 Active 650 mg AR Q4H PRN PRN Aspirin EC 81 mg [Ecotrin 81 mg] Med 12/08/21 13:00 Active 81 mg PO DAILY Azithromycin 500 mg/250 ml [Zithromax 500 MG/ 250 ML Med 12/08/21 10:00 Discontinued NaCl Premix] 500 mg in 250 ml IV Q24H10 Azithromycin 500 mg/250 ml [Zithromax 500 MG/ 250 ML Med 12/08/21 22:00 Active NaCl Premix] 500 mg in 250 ml IV Q24H22 Azithromycin 500 mg/250 ml [Zithromax 500 MG/ 250 ML Med 12/07/21 20:43 Discontinued NaCl Premix] 500 mg in 250 ml IV UD Calcium Carbonate 750 mg [Tums EX 750 MG] Med 12/08/21 12:29 Active 750 mg PO TID PRN PRN Ceftriaxone 1 GM/50 ML PREMIX* [ROCEPHIN 1 Gm-D5w 50 ml Med 12/08/21 10:00 Discontinued Bag] 1 g in 50 ml IV Q24H10 Ceftriaxone 1 GM/50 ML PREMIX* [ROCEPHIN 1 Gm-D5w 50 ml Med 12/08/21 22:00 Active Bag] 1 g in 50 ml IV Q24H22 Ceftriaxone 1 GM/50 ML PREMIX* [ROCEPHIN 1 Gm-D5w 50 ml Med 12/07/21 20:43 Discontinued Bag] 1 g in 50 ml IV UD Enoxaparin Sodium [Enoxaparin Sodium] Med 12/08/21 22:00 Active 100 mg SQ Q24H22 Enoxaparin Sodium [Enoxaparin Sodium] Med 12/07/21 20:44 Discontinued 120 mg SQ .STK-MED ONE Enoxaparin Sodium [Enoxaparin Sodium] Med 12/08/21 10:00 Discontinued 94 mg SQ DAILY Multivitamins,Therapeutic Tab* [Theragran Multivitamin* Med 12/08/21 13:00 Active ] 1 tab PO DAILY Pharmacy Dosing Request Med 12/08/21 12:30 Discontinued 1 each MC STAT ONE Rivaroxaban 10 mg Tablet [Xarelto 10 mg Tablet] Med 12/08/21 13:05 Discontinued 15 mg PO STAT ONE EKG STAT RT 12/07/21 17:00 Active Patient Care Notes (Last 24 hours) 12/08/21 13:06 Nursing Note by Bria Scherer Dr. rounded on patient and informed him of his condition and test results. Order to give 1x dose 15mg Xarelto now. Dr Gagnon told family to apple picker "starter pack" of Xarelto at his office in [place] and patient can discharge to home and follow up with him in 2 weeks. Dosing for Xarelto put in discharge information Initialized on 12/08/21 13:06 - END OF NOTE 12/08/21 11:46 Case Management Note by Gertrude Miller DR HERE, REQUEST TO ASK DR GAGNON IF HE WILL SEE PT HERE IN HOSPITAL SINCE HE IS GOING TO F/U WITH PATIENT. THIS NURSE PHONED DR GAGNON OFFICE AND REQUESTED FOR HIM TO SEE PT TODAY INSTEAD OF GLASSWARE VERIFIER. DR GAGNON AGREED TO SEE PATIENT AND WILL BE HERE THIS AFTERNOON. Initialized on 12/08/21 11:46 - END OF NOTE Code(s): I26.99 - OTHER PULMONARY EMBOLISM WITHOUT ACUTE COR PULMONALE (2) Abdominal pain Current Visit: Yes Status: Resolved Qualifiers: Abdominal location: generalized Qualified Code(s): R10.84 - Generalized abdominal pain Code(s): R10.9 - UNSPECIFIED ABDOMINAL PAIN Hospital Summary - Hospital Course Hospital Course: Last Vital Signs Temp 98.7 F 12/08/21 12:00 Pulse 75 12/08/21 12:00 Resp 21 12/08/21 12:00 BP 145/80 12/08/21 12:00 Pulse Ox 94 L 12/08/21 12:00 Allergies No Known Drug Allergies Allergy (Unverified 12/07/21 14:43) Active Medications Acetaminophen (Acetaminophen 650 Mg Supp.Rect) 650 mg AR Q4H PRN PRN PRN Reason: PAIN AND/OR FEVER Stop: 01/06/22 17:57 Aspirin (Aspirin 81 Mg Tablet.Ec) 81 mg PO DAILY PRIYANKA Stop: 01/07/22 12:59 Calcium Carbonate/Glycine (Calcium Carbonate 750 Mg 750 Mg Tab.Chew) 750 mg PO TID PRN PRN PRN Reason: GAS Stop: 01/07/22 12:28 Enoxaparin Sodium (Enoxaparin Sodium 100 Mg/Ml Syringe) 100 mg SQ Q24H22 PRIYANKA Stop: 01/07/22 21:59 Ceftriaxone Sodium/Dextrose (Rocephin 1 Gm-D5w 50 Ml Bag) 1 g in 50 mls @ 100 mls/hr IV Q24H22 PRIYANKA Stop: 12/11/21 21:59 Azithromycin (Zithromax 500 Mg/ 250 Ml Nacl Premix) 500 mg in 250 mls @ 250 mls/hr IV Q24H22 PRIYANKA Stop: 01/07/22 21:59 Multivitamins Therapeutic (Multivitamins,Therapeutic 1 Tab Tab) 1 tab PO DAILY PRIYANKA Stop: 01/07/22 12:59 Intake & Output 12/08/21 12/09/21 11:59 11:59 Intake Total 1320 Balance 1320 Weight 94.1 kg Orders 12/08/21 Discharge Routine Discharge/Telephone Order Routine Lab Tests 12/07/21 12/07/21 12/07/21 15:00 15:00 15:02 WBC 11.1 H RBC 4.81 Hgb 15.1 Hct 44.8 MCV 93.1 MCH 31.4 MCHC 33.7 RDW 13.5 Plt Count 373 MPV 9.8 Gran % 68.5 H Eos # (Auto) 0.17 Absolute Lymphs (auto) 2.10 Absolute Monos (auto) 1.15 Lymphocytes % 19.0 L Monocytes % 10.4 Eosinophils % 1.5 Basophils % 0.6 Absolute Granulocytes 7.57 H Basophils # 0.07 PT INR APTT D-Dimer Sodium 137 Potassium 4.7 Chloride 104 Carbon Dioxide 21 L Anion Gap 15.9 H BUN 16 Creatinine 0.83 Estimated GFR > 60.0 Glucose 110 H Lactic Acid Calcium 10.0 Total Bilirubin AST ALT Alkaline Phosphatase Troponin I NT-Pro-B Natriuret Pep Serum Total Protein Albumin Urine Color FABIANO Urine Appearance SLIGHTLY CLOUDY Urine pH 5.0 Ur Specific [place] 1.025 Urine Protein 30 Urine Ketones TRACE Urine Blood NEGATIVE Urine Nitrite NEGATIVE Urine Bilirubin NEGATIVE Urine Urobilinogen 2 Ur Leukocyte Esterase NEGATIVE Urine WBC (Auto) NONE Urine RBC (Auto) 0-2 U Epithel Cells (Auto) NONE Urine Bacteria (Auto) NONE Urine Mucus (Auto) SLIGHT Urine Culture Reflexed NO Urine Glucose NEGATIVE Influenza Type A Ag Influenza Type B Ag RSV (PCR) SARS-CoV-2 (PCR) 12/07/21 12/07/21 12/07/21 16:43 17:13 17:21 WBC RBC Hgb Hct MCV MCH MCHC RDW Plt Count MPV Gran % Eos # (Auto) Absolute Lymphs (auto) Absolute Monos (auto) Lymphocytes % Monocytes % Eosinophils % Basophils % Absolute Granulocytes Basophils # PT INR APTT D-Dimer 1818 H* Sodium Potassium Chloride Carbon Dioxide Anion Gap BUN Creatinine Estimated GFR Glucose Lactic Acid Calcium Total Bilirubin AST ALT Alkaline Phosphatase Troponin I < 0.012 NT-Pro-B Natriuret Pep 148 Serum Total Protein Albumin Urine Color Urine Appearance Urine pH Ur Specific [place] Urine Protein Urine Ketones Urine Blood Urine Nitrite Urine Bilirubin Urine Urobilinogen Ur Leukocyte Esterase Urine WBC (Auto) Urine RBC (Auto) U Epithel Cells (Auto) Urine Bacteria (Auto) Urine Mucus (Auto) Urine Culture Reflexed Urine Glucose Influenza Type A Ag Influenza Type B Ag RSV (PCR) SARS-CoV-2 (PCR) 12/07/21 12/07/21 12/07/21 17:30 18:10 18:55 WBC RBC Hgb Hct MCV MCH MCHC RDW Plt Count MPV Gran % Eos # (Auto) Absolute Lymphs (auto) Absolute Monos (auto) Lymphocytes % Monocytes % Eosinophils % Basophils % Absolute Granulocytes Basophils # PT 11.8 INR 1.00 APTT 32.8 D-Dimer Sodium Potassium Chloride Carbon Dioxide Anion Gap BUN Creatinine Estimated GFR Glucose Lactic Acid 0.9 Calcium Total Bilirubin AST ALT Alkaline Phosphatase Troponin I NT-Pro-B Natriuret Pep Serum Total Protein Albumin Urine Color Urine Appearance Urine pH Ur Specific [place] Urine Protein Urine Ketones Urine Blood Urine Nitrite Urine Bilirubin Urine Urobilinogen Ur Leukocyte Esterase Urine WBC (Auto) Urine RBC (Auto) U Epithel Cells (Auto) Urine Bacteria (Auto) Urine Mucus (Auto) Urine Culture Reflexed Urine Glucose Influenza Type A Ag NEGATIVE Influenza Type B Ag NEGATIVE RSV (PCR) NEGATIVE SARS-CoV-2 (PCR) NEGATIVE 12/08/21 05:04 WBC RBC Hgb Hct MCV MCH MCHC RDW Plt Count MPV Gran % Eos # (Auto) Absolute Lymphs (auto) Absolute Monos (auto) Lymphocytes % Monocytes % Eosinophils % Basophils % Absolute Granulocytes Basophils # PT INR APTT D-Dimer Sodium 134 L Potassium 3.7 D Chloride 105 Carbon Dioxide 21 L Anion Gap 12.3 BUN 14 Creatinine 0.81 Estimated GFR > 60.0 Glucose 102 Lactic Acid Calcium 8.7 Total Bilirubin 0.60 AST 38 ALT 38 Alkaline Phosphatase 75 Troponin I NT-Pro-B Natriuret Pep Serum Total Protein 7.3 Albumin 3.9 Urine Color Urine Appearance Urine pH Ur Specific [place] Urine Protein Urine Ketones Urine Blood Urine Nitrite Urine Bilirubin Urine Urobilinogen Ur Leukocyte Esterase Urine WBC (Auto) Urine RBC (Auto) U Epithel Cells (Auto) Urine Bacteria (Auto) Urine Mucus (Auto) Urine Culture Reflexed Urine Glucose Influenza Type A Ag Influenza Type B Ag RSV (PCR) SARS-CoV-2 (PCR) Chief Complaint Diagnosis Right pleural effusion Allergies Allergy/AdvReac Type Severity Reaction Status Date / Time No Known Drug Allergies Allergy Unverified 12/07/21 14:43 Vital Signs (Last 24 hours) Temp Pulse Resp BP Pulse Ox 12/08/21 12:00 98.7 F 75 21 145/80 94 L 12/08/21 07:55 97.7 F 75 19 142/83 93 L 12/08/21 04:30 99.4 F 76 18 139/68 92 L 12/07/21 23:33 99.1 F 78 20 157/74 95 12/07/21 20:17 98.3 F 78 16 158/98 96 12/07/21 19:09 75 17 136/101 94 L 12/07/21 18:05 80 193/89 95 12/07/21 17:28 81 156/98 95 12/07/21 16:17 76 146/79 96 12/07/21 15:51 131/89 12/07/21 14:44 98.7 F 85 18 178/99 97 Home Medications Medication Instructions Recorded Confirmed Last Taken Type Aspirin [Lo-Dose Aspirin EC] 81 mg PO DAILY 12/08/21 12/08/21 12/07/21 History C/Sourcherry/Celery/Grape Seed 1 cap PO DAILY 12/08/21 12/08/21 12/07/21 History [[place] Capsule] Calcium Carbonate [Tums] 1 tab PO TID PRN PRN 12/08/21 12/08/21 Unknown History Multivit-Minerals/FA/Lycopene [One 1 tab PO DAILY 12/08/21 12/08/21 12/07/21 History Daily Men's Health Tablet] Beacon-3/Dha/Epa/Fish Oil [Megared 1 cap PO DAILY 12/08/21 12/08/21 12/07/21 History Adv 6X Abs 800 mg Sfgl] Current Medications Generic Name Dose Route Start Last Admin Trade Name Freq PRN Reason Stop Dose Admin Acetaminophen 650 mg 12/07/21 17:58 Acetaminophen 650 Mg Supp.Rect AR 01/06/22 17:57 Q4H PRN PRN PAIN AND/OR FEVER Aspirin 81 mg 12/08/21 13:00 Aspirin 81 Mg Tablet.Ec PO 01/07/22 12:59 DAILY PRIYANKA Calcium Carbonate/Glycine 750 mg 12/08/21 12:29 Calcium Carbonate 750 Mg 750 Mg Tab.Chew PO 01/07/22 12:28 TID PRN PRN GAS Enoxaparin Sodium 100 mg 12/08/21 22:00 Enoxaparin Sodium 100 Mg/Ml Syringe SQ 01/07/22 21:59 Q24H22 [facility] Ceftriaxone Sodium/Dextrose 1 g in 50 mls @ 100 mls/hr 12/08/21 22:00 Rocephin 1 Gm-D5w 50 Ml Bag IV 12/11/21 21:59 Q24H22 PRIYANKA Azithromycin 500 mg in 250 mls @ 250 mls/hr 12/08/21 22:00 Zithromax 500 Mg/ 250 Ml Nacl Premix IV 01/07/22 21:59 Q24H22 PRIYANKA Multivitamins Therapeutic 1 tab 12/08/21 13:00 Multivitamins,Therapeutic 1 Tab Tab PO 01/07/22 12:59 DAILY PRIYANKA Discontinued Medications Generic Name Dose Route Start Last Admin Trade Name Freq PRN Reason Stop Dose Admin Enoxaparin Sodium 94 mg 12/08/21 10:00 12/07/21 20:59 Enoxaparin Sodium 120 Mg/0.8 Ml Syringe SQ 01/07/22 09:59 94 mg DAILY PRIYANKA Administration Enoxaparin Sodium Confirm 12/07/21 20:44 Enoxaparin Sodium 120 Mg/0.8 Ml Syringe Administered 12/07/21 20:45 Dose 120 mg SQ .STK-MED ONE Ceftriaxone Sodium/Dextrose 1 g in 50 mls @ 100 mls/hr 12/08/21 10:00 0 12/07/21 20:58 Rocephin 1 Gm-D5w 50 Ml Bag IV 12/11/21 09:59 100 mls/hr Q24H10 PRIYANKA Administration Azithromycin 500 mg in 250 mls @ 250 mls/hr 12/08/21 10:00 12/07/21 21:32 Zithromax 500 Mg/ 250 Ml Nacl Premix IV 01/07/22 09:59 250 mls/hr Q24H10 PRIYANKA Administration Azithromycin Confirm 12/07/21 20:43 Zithromax 500 Mg/ 250 Ml Nacl Premix Administered 12/07/21 20:44 Dose 500 mg in 250 mls @ ud IV .STK-MED ONE Ceftriaxone Sodium/Dextrose Confirm 12/07/21 20:43 Rocephin 1 Gm-D5w 50 Ml Bag Administered 12/07/21 20:44 Dose 1 g in 50 mls @ ud IV .STK-MED ONE Non-Formulary Medication 1 each 12/08/21 12:30 Pharmacy Dosing Request 12/08/21 12:31 STAT ONE Rivaroxaban 15 mg 12/08/21 13:05 12/08/21 13:18 Rivaroxaban 10 Mg Tablet PO 12/08/21 13:06 15 mg STAT ONE Administration Intake & Output (Last 24 hours) 12/06/21 12/07/21 12/08/21 12/09/21 10:59 11:59 11:59 11:59 Intake Total 1320 Balance 1320 Weight 94.1 kg Microbiology Results (Last 24 hours) 12/07/21 18:50 Blood Blood Culture Gram Stain - Pending 12/07/21 18:50 Blood Blood Culture - Pending 12/07/21 17:30 Blood Blood Culture Gram Stain - Pending 12/07/21 17:30 Blood Blood Culture - Pending Laboratory Results (Last 24 hours) 12/08/21 12/07/21 12/07/21 05:04 18:55 18:10 WBC RBC Hgb Hct MCV MCH MCHC RDW Plt Count MPV Gran % Eos # (Auto) Absolute Lymphs (auto) Absolute Monos (auto) Lymphocytes % Monocytes % Eosinophils % Basophils % Absolute Granulocytes Basophils # PT INR APTT D-Dimer Sodium 134 L Potassium 3.7 D Chloride 105 Carbon Dioxide 21 L Anion Gap 12.3 BUN 14 Creatinine 0.81 Estimated GFR > 60.0 Glucose 102 Lactic Acid 0.9 Calcium 8.7 Total Bilirubin 0.60 AST 38 ALT 38 Alkaline Phosphatase 75 Troponin I NT-Pro-B Natriuret Pep Serum Total Protein 7.3 Albumin 3.9 Urine Color Urine Appearance Urine pH Ur Specific [place] Urine Protein Urine Ketones Urine Blood Urine Nitrite Urine Bilirubin Urine Urobilinogen Ur Leukocyte Esterase Urine WBC (Auto) Urine RBC (Auto) U Epithel Cells (Auto) Urine Bacteria (Auto) Urine Mucus (Auto) Urine Culture Reflexed Urine Glucose Influenza Type A Ag NEGATIVE Influenza Type B Ag NEGATIVE RSV (PCR) NEGATIVE SARS-CoV-2 (PCR) NEGATIVE 12/07/21 12/07/21 12/07/21 17:30 17:21 17:13 WBC RBC Hgb Hct MCV MCH MCHC RDW Plt Count MPV Gran % Eos # (Auto) Absolute Lymphs (auto) Absolute Monos (auto) Lymphocytes % Monocytes % Eosinophils % Basophils % Absolute Granulocytes Basophils # PT 11.8 INR 1.00 APTT 32.8 D-Dimer Sodium Potassium Chloride Carbon Dioxide Anion Gap BUN Creatinine Estimated GFR Glucose Lactic Acid Calcium Total Bilirubin AST ALT Alkaline Phosphatase Troponin I < 0.012 NT-Pro-B Natriuret Pep 148 Serum Total Protein Albumin Urine Color Urine Appearance Urine pH Ur Specific [place] Urine Protein Urine Ketones Urine Blood Urine Nitrite Urine Bilirubin Urine Urobilinogen Ur Leukocyte Esterase Urine WBC (Auto) Urine RBC (Auto) U Epithel Cells (Auto) Urine Bacteria (Auto) Urine Mucus (Auto) Urine Culture Reflexed Urine Glucose Influenza Type A Ag Influenza Type B Ag RSV (PCR) SARS-CoV-2 (PCR) 12/07/21 12/07/21 12/07/21 16:43 15:02 15:00 WBC RBC Hgb Hct MCV MCH MCHC RDW Plt Count MPV Gran % Eos # (Auto) Absolute Lymphs (auto) Absolute Monos (auto) Lymphocytes % Monocytes % Eosinophils % Basophils % Absolute Granulocytes Basophils # PT INR APTT D-Dimer 1818 H* Sodium 137 Potassium 4.7 Chloride 104 Carbon Dioxide 21 L Anion Gap 15.9 H BUN 16 Creatinine 0.83 Estimated GFR > 60.0 Glucose 110 H Lactic Acid Calcium 10.0 Total Bilirubin AST ALT Alkaline Phosphatase Troponin I NT-Pro-B Natriuret Pep Serum Total Protein Albumin Urine Color FABIANO Urine Appearance SLIGHTLY CLOUDY Urine pH 5.0 Ur Specific [place] 1.025 Urine Protein 30 Urine Ketones TRACE Urine Blood NEGATIVE Urine Nitrite NEGATIVE Urine Bilirubin NEGATIVE Urine Urobilinogen 2 Ur Leukocyte Esterase NEGATIVE Urine WBC (Auto) NONE Urine RBC (Auto) 0-2 U Epithel Cells (Auto) NONE Urine Bacteria (Auto) NONE Urine Mucus (Auto) SLIGHT Urine Culture Reflexed NO Urine Glucose NEGATIVE Influenza Type A Ag Influenza Type B Ag RSV (PCR) SARS-CoV-2 (PCR) 12/07/21 15:00 WBC 11.1 H RBC 4.81 Hgb 15.1 Hct 44.8 MCV 93.1 MCH 31.4 MCHC 33.7 RDW 13.5 Plt Count 373 MPV 9.8 Gran % 68.5 H Eos # (Auto) 0.17 Absolute Lymphs (auto) 2.10 Absolute Monos (auto) 1.15 Lymphocytes % 19.0 L Monocytes % 10.4 Eosinophils % 1.5 Basophils % 0.6 Absolute Granulocytes 7.57 H Basophils # 0.07 PT INR APTT D-Dimer Sodium Potassium Chloride Carbon Dioxide Anion Gap BUN Creatinine Estimated GFR Glucose Lactic Acid Calcium Total Bilirubin AST ALT Alkaline Phosphatase Troponin I NT-Pro-B Natriuret Pep Serum Total Protein Albumin Urine Color Urine Appearance Urine pH Ur Specific [place] Urine Protein Urine Ketones Urine Blood Urine Nitrite Urine Bilirubin Urine Urobilinogen Ur Leukocyte Esterase Urine WBC (Auto) Urine RBC (Auto) U Epithel Cells (Auto) Urine Bacteria (Auto) Urine Mucus (Auto) Urine Culture Reflexed Urine Glucose Influenza Type A Ag Influenza Type B Ag RSV (PCR) SARS-CoV-2 (PCR) Orders (Last 24 hours) Category Date Time Status Up With Assistance TOLERATED Activity 12/07/21 17:59 Active IV Insertion ROUTINE Care 12/07/21 17:58 Active IV Insertion STAT Care 12/07/21 14:[address] in Observation ROUTINE Care 12/07/21 17:58 Active House Regular Diet Diet 12/08/21 Breakfast Active Discharge Routine Discharge 12/08/21 Ordered Discharge/Telephone Order Routine Discharge 12/08/21 Active ABDOMEN AND PELVIS W CONTRAST [CT] Stat Exams 12/07/21 15:20 Completed CHEST 2 VIEWS (PA AND LAT) Stat Exams 12/07/21 16:40 Completed CHEST WITH CONTRAST [CT] Routine Exams 12/08/21 09:00 Completed BLOOD CULTURE Stat Lab 12/07/21 18:50 Received BMP Stat Lab 12/07/21 15:00 Completed CBC W DIFF Stat Lab 12/07/21 15:00 Completed CMP AM.LAB Lab 12/08/21 05:04 Completed D-DIMER QUANTITATIVE Stat Lab 12/07/21 16:43 Completed Lactic Acid Stat Lab 12/07/21 18:55 Completed NT PRO BNP Stat Lab 12/07/21 17:21 Completed PROTIME WITH INR Stat Lab 12/07/21 17:30 Completed PTT Stat Lab 12/07/21 17:30 Completed TROPONIN Stat Lab 12/07/21 17:13 Completed UA W/RFX UR CULTURE Stat Lab 12/07/21 15:02 Completed Acetaminophen 650 mg [Feverall 650 mg] Med 12/07/21 17:58 Active 650 mg AR Q4H PRN PRN Aspirin EC 81 mg [Ecotrin 81 mg] Med 12/08/21 13:00 Active 81 mg PO DAILY Azithromycin 500 mg/250 ml [Zithromax 500 MG/ 250 ML Med 12/08/21 10:00 Discontinued NaCl Premix] 500 mg in 250 ml IV Q24H10 Azithromycin 500 mg/250 ml [Zithromax 500 MG/ 250 ML Med 12/08/21 22:00 Active NaCl Premix] 500 mg in 250 ml IV Q24H22 Azithromycin 500 mg/250 ml [Zithromax 500 MG/ 250 ML Med 12/07/21 20:43 Discontinued NaCl Premix] 500 mg in 250 ml IV UD Calcium Carbonate 750 mg [Tums EX 750 MG] Med 12/08/21 12:29 Active 750 mg PO TID PRN PRN Ceftriaxone 1 GM/50 ML PREMIX* [ROCEPHIN 1 Gm-D5w 50 ml Med 12/08/21 10:00 Discontinued Bag] 1 g in 50 ml IV Q24H10 Ceftriaxone 1 GM/50 ML PREMIX* [ROCEPHIN 1 Gm-D5w 50 ml Med 12/08/21 22:00 Active Bag] 1 g in 50 ml IV Q24H22 Ceftriaxone 1 GM/50 ML PREMIX* [ROCEPHIN 1 Gm-D5w 50 ml Med 12/07/21 20:43 Discontinued Bag] 1 g in 50 ml IV UD Enoxaparin Sodium [Enoxaparin Sodium] Med 12/08/21 22:00 Active 100 mg SQ Q24H22 Enoxaparin Sodium [Enoxaparin Sodium] Med 12/07/21 20:44 Discontinued 120 mg SQ .STK-MED ONE Enoxaparin Sodium [Enoxaparin Sodium] Med 12/08/21 10:00 Discontinued 94 mg SQ DAILY Multivitamins,Therapeutic Tab* [Theragran Multivitamin* Med 12/08/21 13:00 Active ] 1 tab PO DAILY Pharmacy Dosing Request Med 12/08/21 12:30 Discontinued 1 each MC STAT ONE Rivaroxaban 10 mg Tablet [Xarelto 10 mg Tablet] Med 12/08/21 13:05 Discontinued 15 mg PO STAT ONE EKG STAT RT 12/07/21 17:00 Active Patient Care Notes (Last 24 hours) 12/08/21 13:06 Nursing Note by Bria Scherer Dr. rounded on patient and informed him of his condition and test results. Order to give 1x dose 15mg Xarelto now. Dr Gagnon told family to apple picker "starter pack" of Xarelto at his office in [place] and patient can discharge to home and follow up with him in 2 weeks. Dosing for Xarelto put in discharge information Initialized on 12/08/21 13:06 - END OF NOTE 12/08/21 11:46 Case Management Note by Gertrude Miller DR HERE, REQUEST TO ASK DR GAGNON IF HE WILL SEE PT HERE IN HOSPITAL SINCE HE IS GOING TO F/U WITH PATIENT. THIS NURSE PHONED DR GAGNON OFFICE AND REQUESTED FOR HIM TO SEE PT TODAY INSTEAD OF GLASSWARE VERIFIER. DR GAGNON AGREED TO SEE PATIENT AND WILL BE HERE THIS AFTERNOON. Initialized on 12/08/21 11:46 - END OF NOTE - Vitals & Intake/Output Vital Signs: Vital Signs Temperature 98.7 F 12/08/21 12:00 Pulse Rate 75 12/08/21 12:00 Respiratory Rate 21 03/14/22 12:00 Blood Pressure 145/80 12/08/21 12:00 O2 Sat by Pulse Oximetry 94 L 12/08/21 12:00 Intake & Output: Intake & Output 12/06/21 12/07/21 12/08/21 12/09/21 10:59 11:59 11:59 11:59 Intake Total 1320 Balance 1320 Weight 94.1 kg - Lab Result Diagrams: 12/07/21 15:00 12/08/21 05:04 Lab Results-Last 24 Hrs: Lab Results-Last 24 Hours 12/07/21 12/07/21 12/07/21 Range/Units 15:00 15:00 15:02 WBC 11.1 H (4.0-10.5) K/mm3 RBC 4.81 (4.1-5.6) M/mm3 Hgb 15.1 (12.5-18.0) gm/dl Hct 44.8 (42-50) % MCV 93.1 (78-100) fl MCH 31.4 (26-32) pg MCHC 33.7 (32-36) g/dl RDW 13.5 (11.5-14.0) % Plt Count 373 (150-450) K/mm3 MPV 9.8 (7.5-11.0) fl Gran % 68.5 H (36.0-66.0) % Eos # (Auto) 0.17 (0-0.5) Absolute Lymphs (auto) 2.10 (1.0-4.6) Absolute Monos (auto) 1.15 (0.0-1.3) Lymphocytes % 19.0 L (24.0-44.0) % Monocytes % 10.4 (0.0-12.0) % Eosinophils % 1.5 (0.00-5.0) % Basophils % 0.6 (0.0-0.4) % Absolute Granulocytes 7.57 H (1.4-6.9) Basophils # 0.07 (0-0.4) PT (9.4-12.5) SECONDS INR (0.8-3.0) APTT (25.1-36.5) SECONDS D-Dimer (215-500) ng/mL Sodium 137 (137-145) mmol/L Potassium 4.7 (3.5-5.1) mmol/L Chloride 104 (98-107) mmol/L Carbon Dioxide 21 L (22-30) mmol/L Anion Gap 15.9 H (5-15) MEQ/L BUN 16 (9-20) mg/dL Creatinine 0.83 (0.66-1.25) mg/dL Estimated GFR > 60.0 ML/MIN Glucose 110 H (74-106) mg/dL Lactic Acid (0.4-2.0) Calcium 10.0 (8.4-10.2) mg/dL Total Bilirubin (0.2-1.3) mg/dL AST (17-59) U/L ALT (0-50) U/L Alkaline Phosphatase (38-126) U/L Troponin I (0.000-0.034) ng/mL NT-Pro-B Natriuret Pep (0-900) pg/mL Serum Total Protein (6.3-8.2) g/dL Albumin (3.5-5.0) g/dL Urine Color FABIANO (YELLOW) Urine Appearance SLIGHTLY CLOUDY (CLEAR) Urine pH 5.0 (5-6) Ur Specific [place] 1.025 (1.005-1.025) Urine Protein 30 (Negative) Urine Ketones TRACE (NEGATIVE) Urine Blood NEGATIVE (0-5) Gene/ul Urine Nitrite NEGATIVE (NEGATIVE) Urine Bilirubin NEGATIVE (NEGATIVE) Urine Urobilinogen 2 (0-1) mg/dL Ur Leukocyte Esterase NEGATIVE (NEGATIVE) Urine WBC (Auto) NONE (0-5) /HPF Urine RBC (Auto) 0-2 (0-2) /HPF U Epithel Cells (Auto) NONE (FEW) /HPF Urine Bacteria (Auto) NONE (NEGATIVE) /HPF Urine Mucus (Auto) SLIGHT (NEGATIVE) /HPF Urine Culture Reflexed NO (NO) Urine Glucose NEGATIVE (NEGATIVE) mg/dL Influenza Type A Ag (NEGATIVE) Influenza Type B Ag (NEGATIVE) RSV (PCR) (Negative) SARS-CoV-2 (PCR) (NEGATIVE) 12/07/21 12/07/21 12/07/21 Range/Units 16:43 17:13 17:21 WBC (4.0-10.5) K/mm3 RBC (4.1-5.6) M/mm3 Hgb (12.5-18.0) gm/dl Hct (42-50) % MCV (78-100) fl MCH (26-32) pg MCHC (32-36) g/dl RDW (11.5-14.0) % Plt Count (150-450) K/mm3 MPV (7.5-11.0) fl Gran % (36.0-66.0) % Eos # (Auto) (0-0.5) Absolute Lymphs (auto) (1.0-4.6) Absolute Monos (auto) (0.0-1.3) Lymphocytes % (24.0-44.0) % Monocytes % (0.0-12.0) % Eosinophils % (0.00-5.0) % Basophils % (0.0-0.4) % Absolute Granulocytes (1.4-6.9) Basophils # (0-0.4) PT (9.4-12.5) SECONDS INR (0.8-3.0) APTT (25.1-36.5) SECONDS D-Dimer 1818 H* (215-500) ng/mL Sodium (137-145) mmol/L Potassium (3.5-5.1) mmol/L Chloride (98-107) mmol/L Carbon Dioxide (22-30) mmol/L Anion Gap (5-15) MEQ/L BUN (9-20) mg/dL Creatinine (0.66-1.25) mg/dL Estimated GFR ML/MIN Glucose (74-106) mg/dL Lactic Acid (0.4-2.0) Calcium (8.4-10.2) mg/dL Total Bilirubin (0.2-1.3) mg/dL AST (17-59) U/L ALT (0-50) U/L Alkaline Phosphatase (38-126) U/L Troponin I < 0.012 (0.000-0.034) ng/mL NT-Pro-B Natriuret Pep 148 (0-900) pg/mL Serum Total Protein (6.3-8.2) g/dL Albumin (3.5-5.0) g/dL Urine Color (YELLOW) Urine Appearance (CLEAR) Urine pH (5-6) Ur Specific [place] (1.005-1.025) Urine Protein (Negative) Urine Ketones (NEGATIVE) Urine Blood (0-5) Gene/ul Urine Nitrite (NEGATIVE) Urine Bilirubin (NEGATIVE) Urine Urobilinogen (0-1) mg/dL Ur Leukocyte Esterase (NEGATIVE) Urine WBC (Auto) (0-5) /HPF Urine RBC (Auto) (0-2) /HPF U Epithel Cells (Auto) (FEW) /HPF Urine Bacteria (Auto) (NEGATIVE) /HPF Urine Mucus (Auto) (NEGATIVE) /HPF Urine Culture Reflexed (NO) Urine Glucose (NEGATIVE) mg/dL Influenza Type A Ag (NEGATIVE) Influenza Type B Ag (NEGATIVE) RSV (PCR) (Negative) SARS-CoV-2 (PCR) (NEGATIVE) 12/07/21 12/07/21 12/07/21 Range/Units 17:30 18:10 18:55 WBC (4.0-10.5) K/mm3 RBC (4.1-5.6) M/mm3 Hgb (12.5-18.0) gm/dl Hct (42-50) % MCV (78-100) fl MCH (26-32) pg MCHC (32-36) g/dl RDW (11.5-14.0) % Plt Count (150-450) K/mm3 MPV (7.5-11.0) fl Gran % (36.0-66.0) % Eos # (Auto) (0-0.5) Absolute Lymphs (auto) (1.0-4.6) Absolute Monos (auto) (0.0-1.3) Lymphocytes % (24.0-44.0) % Monocytes % (0.0-12.0) % Eosinophils % (0.00-5.0) % Basophils % (0.0-0.4) % Absolute Granulocytes (1.4-6.9) Basophils # (0-0.4) PT 11.8 (9.4-12.5) SECONDS INR 1.00 (0.8-3.0) APTT 32.8 (25.1-36.5) SECONDS D-Dimer (215-500) ng/mL Sodium (137-145) mmol/L Potassium (3.5-5.1) mmol/L Chloride (98-107) mmol/L Carbon Dioxide (22-30) mmol/L Anion Gap (5-15) MEQ/L BUN (9-20) mg/dL Creatinine (0.66-1.25) mg/dL Estimated GFR ML/MIN Glucose (74-106) mg/dL Lactic Acid 0.9 (0.4-2.0) Calcium (8.4-10.2) mg/dL Total Bilirubin (0.2-1.3) mg/dL AST (17-59) U/L ALT (0-50) U/L Alkaline Phosphatase (38-126) U/L Troponin I (0.000-0.034) ng/mL NT-Pro-B Natriuret Pep (0-900) pg/mL Serum Total Protein (6.3-8.2) g/dL Albumin (3.5-5.0) g/dL Urine Color (YELLOW) Urine Appearance (CLEAR) Urine pH (5-6) Ur Specific [place] (1.005-1.025) Urine Protein (Negative) Urine Ketones (NEGATIVE) Urine Blood (0-5) Gene/ul Urine Nitrite (NEGATIVE) Urine Bilirubin (NEGATIVE) Urine Urobilinogen (0-1) mg/dL Ur Leukocyte Esterase (NEGATIVE) Urine WBC (Auto) (0-5) /HPF Urine RBC (Auto) (0-2) /HPF U Epithel Cells (Auto) (FEW) /HPF Urine Bacteria (Auto) (NEGATIVE) /HPF Urine Mucus (Auto) (NEGATIVE) /HPF Urine Culture Reflexed (NO) Urine Glucose (NEGATIVE) mg/dL Influenza Type A Ag NEGATIVE (NEGATIVE) Influenza Type B Ag NEGATIVE (NEGATIVE) RSV (PCR) NEGATIVE (Negative) SARS-CoV-2 (PCR) NEGATIVE (NEGATIVE) 12/08/21 Range/Units 05:04 WBC (4.0-10.5) K/mm3 RBC (4.1-5.6) M/mm3 Hgb (12.5-18.0) gm/dl Hct (42-50) % MCV (78-100) fl MCH (26-32) pg MCHC (32-36) g/dl RDW (11.5-14.0) % Plt Count (150-450) K/mm3 MPV (7.5-11.0) fl Gran % (36.0-66.0) % Eos # (Auto) (0-0.5) Absolute Lymphs (auto) (1.0-4.6) Absolute Monos (auto) (0.0-1.3) Lymphocytes % (24.0-44.0) % Monocytes % (0.0-12.0) % Eosinophils % (0.00-5.0) % Basophils % (0.0-0.4) % Absolute Granulocytes (1.4-6.9) Basophils # (0-0.4) PT (9.4-12.5) SECONDS INR (0.8-3.0) APTT (25.1-36.5) SECONDS D-Dimer (215-500) ng/mL Sodium 134 L (137-145) mmol/L Potassium 3.7 D (3.5-5.1) mmol/L Chloride 105 (98-107) mmol/L Carbon Dioxide 21 L (22-30) mmol/L Anion Gap 12.3 (5-15) MEQ/L BUN 14 (9-20) mg/dL Creatinine 0.81 (0.66-1.25) mg/dL Estimated GFR > 60.0 ML/MIN Glucose 102 (74-106) mg/dL Lactic Acid (0.4-2.0) Calcium 8.7 (8.4-10.2) mg/dL Total Bilirubin 0.60 (0.2-1.3) mg/dL AST 38 (17-59) U/L ALT 38 (0-50) U/L Alkaline Phosphatase 75 (38-126) U/L Troponin I (0.000-0.034) ng/mL NT-Pro-B Natriuret Pep (0-900) pg/mL Serum Total Protein 7.3 (6.3-8.2) g/dL Albumin 3.9 (3.5-5.0) g/dL Urine Color (YELLOW) Urine Appearance (CLEAR) Urine pH (5-6) Ur Specific [place] (1.005-1.025) Urine Protein (Negative) Urine Ketones (NEGATIVE) Urine Blood (0-5) Gene/ul Urine Nitrite (NEGATIVE) Urine Bilirubin (NEGATIVE) Urine Urobilinogen (0-1) mg/dL Ur Leukocyte Esterase (NEGATIVE) Urine WBC (Auto) (0-5) /HPF Urine RBC (Auto) (0-2) /HPF U Epithel Cells (Auto) (FEW) /HPF Urine Bacteria (Auto) (NEGATIVE) /HPF Urine Mucus (Auto) (NEGATIVE) /HPF Urine Culture Reflexed (NO) Urine Glucose (NEGATIVE) mg/dL Influenza Type A Ag (NEGATIVE) Influenza Type B Ag (NEGATIVE) RSV (PCR) (Negative) SARS-CoV-2 (PCR) (NEGATIVE) - Radiology Exams Ordered Rad Exams-Entire Visit: Radiology Procedures Category Date Time Status ABDOMEN AND PELVIS W CONTRAST [CT] Stat Exams 12/07/21 15:20 Completed CHEST 2 VIEWS (PA AND LAT) Stat Exams 12/07/21 16:40 Completed CHEST WITH CONTRAST [CT] Routine Exams 12/08/21 09:00 Completed - Procedures and Test Procedures and Tests throughout Hospitalization: Therapy Orders & Screens 12/07/21 17:00 EKG STAT Comment: - Discharge Discharge Date: 12/08/21 Disposition: Home, Self-Care Condition: Stable Prescriptions: New Rivaroxaban [Xarelto] 15 mg PO BID 21 Days #42 tablet Continue Beacon-3/Dha/Epa/Fish Oil [Megared Adv 6X Abs 800 mg Sfgl] 1 cap PO DAILY Multivit-Minerals/FA/Lycopene [One Daily Men's Health Tablet] 1 tab PO DAILY C/Sourcherry/Celery/Grape Seed [Tart [place] Capsule] 1 cap PO DAILY Aspirin [Lo-Dose Aspirin EC] 81 mg PO DAILY Calcium Carbonate [Tums] 1 tab PO TID PRN PRN PRN Reason: Gas Instructions: Rivaroxaban, Pulmonary Embolism (Blood Clot in the Lungs) (DC), Going Home on Blood Thinners Additional Instructions: Take Xarelto 15mg twice daily for 3 weeks. Follow up with Dr. Gagnon after andres caldwell (see above date and time for appointment, call to reschedule if needed). Dr Gagnon will address any follow up tests needed at your appointment. Your sample pack of Xarelto is at Dr. Gagnon's office and will need picked up after discharge Follow up with: MONSERRAT GAGNON MD [Primary Care Provider] - 12/22/21 3:30 am (follow up in [place] office)
[2021-12-09] MEDS ORDERED: LYCOPENE T PO SCH (10:00)
[2021-12-09] MEDS ORDERED: DHA PO SCH (10:00)
[2021-12-09] MEDS ORDERED: FISH OIL PO SCH (10:00)
[2021-12-09] MEDS ORDERED: OMEGA PO SCH (10:00)
[2021-12-09] MEDS ORDERED: [UNRECOGNIZED DRUG - OTHER] PO SCH (10:00)
[2021-12-09] MEDS ORDERED: EPA PO SCH (10:00)
[2021-12-09] MEDS ORDERED: [UNRECOGNIZED DRUG - OTHER] PO SCH (10:00)
[2021-12-09] MEDS ORDERED: [UNRECOGNIZED DRUG - OTHER] PO SCH (10:00)
[2021-12-09] MEDS ORDERED: MULTIVIT MINERALS PO SCH (10:00)
== END 2021-12-08 13:50 | disposition home or self-care (01) ==
LOC: ED 14:35 → MED SURG 20:11
PROVIDERS: ADMIT Family Medicine; ATTEND General Practice
DX: I26.93 Single subsegmental thrombotic pulmonary embolism without acute cor pulmonale (principal); R10.84 Generalized abdominal pain; R07.9 Chest pain, unspecified; Z79.01 Long term (current) use of anticoagulants; Z79.899 Other long term (current) drug therapy; Z20.828 Contact with and (suspected) exposure to other viral communicable diseases
CPT/HCPCS: 0241U; 36000; 36415; 71046; 71260; 74177; 80048; 80053; 81001; 83605; 83880; 84484; 85025; 85379; 85610; 85730; 87040; 99285; G0378; J0456; J0696; J1650; A9270-GY